=== PATIENT | male | born 1995 | race Caucasian/White ===

== ENCOUNTER 2017-09-02 16:45 | Emergency (ER) | payer OTHER ==
[2017-09-02] MEDS: ONDANSETRON (ODT) 4 MG TAB ODT (19:03)
[2017-09-02] MEDS: IBUPROFEN 600 MG TAB PO (19:03)
[2017-09-02] MEDS: ACETAMINOPHEN 325 MG TAB PO (19:03)
== END 2017-09-02 21:00 | disposition home or self-care (01) ==
LOC: FTE 16:45
DX: R05 Cough (principal); R50.9 Fever, unspecified; R51 Headache; M54.9 Dorsalgia, unspecified
CPT/HCPCS: 71045; 87400; 99284-25